=== PATIENT | female | born 1990 | race Caucasian/White ===

== ENCOUNTER 2021-06-24 10:52 | Outpatient (REF) | payer OTHER, SELFPAY ==
[2021-06-24 13:15] LABS: MANUAL DIFF FLAG NO
[2021-06-24 13:29] LABS: Basophils Percent Auto 0.2 % (0-2); Eosinophils Absolute Auto 0.1 X10*3/uL (0.0-0.4); Eosinophils Percent Auto 1.1 % (0-4); Hemoglobin 13.1 g/dl (12.0-16.0); Imm Gran Abs Auto 0.03 X10*3/uL (0.00-0.03); Imm Gran Pct Auto 0.3 % (0.0-0.4); Lymphocytes Absolute Auto 1.8 X10*3/uL (1.2-4.9); Lymphocytes Percent Auto 20.9 % (20-40); Mean Corpuscular HGB Conc 34.5 g/dl (31.0-35.0); Mean Corpuscular Hemoglobin 30.9 pg (27.0-33.0); Mean Corpuscular Volume 89.6 fL (80-98); Mean Platelet Volume 11.1 fL (9.4-12.3); Monocytes Absolute Auto 0.5 X10*3/uL (0.1-1.2); Monocytes Percent Auto 5.3 % (2-11); Neutrophils Absolute Auto 6.4 X10*3/uL (2.0-8.3); Neutrophils Percent Auto 72.2 % (45-73); Platelet Count 275 X10*3/uL (160-400); Red Blood Count 4.24 X10*6/uL (4.20-5.50); Red Cell Distribution Width 12.3 % (11.0-16.0); White Blood Count 8.8 X10*3/uL (4.8-10.8)
[2021-06-24 13:38] LABS: Alanine Aminotransferase 13 U/L (0-31); Albumin Level 4.5 g/dL (3.5-5.0); Alkaline Phosphatase 88 U/L (39-117); Anion Gap 13 (12-20); Aspartate Amino Transferase 12 U/L (5-31); Bilirubin Total 0.5 mg/dL (0.0-1.0); Blood Urea Nitrogen 8 mg/dL (9-16); Calcium 8.9 mg/dL (8.4-10.2); Carbon Dioxide 22 mmol/L (22-29); Chloride 108 mmol/L (96-108); Estimated Glomerular Filt Rate > 60; Glucose Random 93 mg/dL (60-115); Iron 66 mcg/dL (30-160); Percent Iron Saturation 19 % (15-50); Potassium 3.8 mmol/L (3.3-5.1); Sodium 139 mmol/L (135-145); Total Iron Binding Capacity 354 mcg/dL (228-428); Total Protein 7.2 g/dL (6.5-8.0); Unsaturated Iron Binding 288 ug/dL
[2021-06-24 14:05] LABS: Folate 19.1 ng/mL (> or = 4.0); Vitamin B12 338 pg/mL (200-900)
[2021-06-24 14:08] LABS: Ferritin 69 ng/mL (10-122); Free T4 (Free Thyroxine) 0.93 ng/dL (0.71-1.85); Thyroid Stimulating Hormone 1.02 uIU/mL (0.32-4.0); Vitamin D 25-OH Total 47.9 ng/mL (>30)
== END 2021-06-24 10:53 | disposition home or self-care (01) ==
LOC: HO.MANLDS 10:52
PROVIDERS: PCP Physician Assistant; Visit Provider Physician Assistant
DX: R53.83 Other fatigue (principal)
CPT/HCPCS: 36415; 80053; 82306; 82607; 82728; 82746; 83540; 84439; 84443; 85025

== ENCOUNTER 2022-02-10 07:57 | Outpatient (REF) | payer OTHER, SELFPAY ==
[2022-02-10 09:29] LABS: C Reactive Protein 0.46 mg/dL (< or = 0.50); Rheumatoid Factor < 15.0 IU/mL (<15.0); Uric Acid 3.7 mg/dL (2.4-5.7)
[2022-02-10 09:41] LABS: Erythrocyte Sedimentation Rate 7 MM/HR (0-20)
[2022-02-13 11:06] LABS: Cyclic Citrullinated Peptide <16 UNITS
[2022-02-13 13:46] LABS: Anti Nuclear Antibody Screen NEGATIVE (NEGATIVE)
[2022-02-13 20:36] LABS: Lyme Abs Screen <0.90 index
[2022-02-16 14:07] LABS: Anti DNA DS Antibody <1 IU/mL
== END 2022-02-10 07:58 | disposition home or self-care (01) ==
LOC: HO.LAB 07:57
PROVIDERS: PCP Internal Medicine; Visit Provider Physician Assistant
DX: M25.442 Effusion, left hand (principal)
CPT/HCPCS: 36415; 84550; 85652; 86038; 86039; 86140; 86200; 86225; 86431; 86617; 86618

== ENCOUNTER 2023-03-21 13:59 | Outpatient (REF) | payer OTHER, SELFPAY ==
[2023-03-21 19:05] LABS: Alanine Aminotransferase 16 U/L (0-31); Albumin Level 4.2 g/dL (3.5-5.0); Alkaline Phosphatase 88 U/L (39-117); Anion Gap 13 (12-20); Aspartate Amino Transferase 13 U/L (5-31); Bilirubin Total 0.4 mg/dL (0.0-1.0); Blood Urea Nitrogen 11 mg/dL (9-16); Calcium 8.9 mg/dL (8.4-10.2); Carbon Dioxide 21 mmol/L (22-29); Chloride 109 mmol/L (96-108); Estimated Glomerular Filt Rate > 60; Glucose Random 99 mg/dL (60-115); Potassium 4.1 mmol/L (3.3-5.1); Sodium 139 mmol/L (135-145); Total Protein 6.7 g/dL (6.5-8.0)
[2023-03-21 19:27] LABS: Thyroid Stimulating Hormone 1.09 uIU/mL (0.32-4.0)
[2023-03-22 05:29] LABS: Estimated Average Glucose 88 mg/dL; Hemoglobin A1c % 4.7 %
[2023-03-22 08:01] LABS: Insulin 27 uU/mL (2-29)
[2023-03-25 18:39] LABS: C Peptide 5.86 ng/mL (0.80-3.85)
[2023-03-27 21:34] LABS: Thyroglobulin Antibodies <1 IU/mL (< or = 1); Thyroid Peroxidase Antibodies 2 IU/mL (<9)
[2023-03-30 12:02] LABS: Testosterone, Total 24 ng/dL (2-45)
[2023-03-30 16:49] LABS: Estrogen 375.6 pg/mL
[2023-03-31 11:04] LABS: Progesterone 5.2 ng/mL
[2023-04-01 04:19] LABS: Estradiol Free 1.43 pg/mL; Estradiol, Ultrasensitive 110 pg/mL
[2023-04-01 15:49] LABS: Cortisol, Free 0.11 mcg/dL
== END 2023-03-21 14:00 | disposition home or self-care (01) ==
LOC: HO.MANLDS 13:59
PROVIDERS: Visit Provider Physician Assistant
DX: E16.1 Other hypoglycemia (principal); R63.5 Abnormal weight gain
CPT/HCPCS: 36415; 80053; 82530; 82670; 82672; 82681; 83036; 83525; 84144; 84403; 84439; 84443; 84681; 86376; 86800